=== PATIENT | female | born 2000 | race Caucasian/White ===

== ENCOUNTER 2023-03-05 08:21 | Emergency (ER) | payer OTHER ==
[~2023-03-05] VITALS: Ht 160 cm; Wt 57.0 kg
[2023-03-05 08:24] VITALS: PULSE 120; RESP 18
[2023-03-05 08:28] VITALS: BP 141/78; TEMP 98.3
== END 2023-03-05 09:34 | disposition left against medical advice (07) ==
LOC: ER 08:21
DX: Z53.21 Procedure and treatment not carried out due to patient leaving prior to being seen by health care provider (principal)
CPT/HCPCS: 99281